=== PATIENT | male | born 1960 | race American Indian/Alaskan Native ===

== ENCOUNTER 2020-08-23 23:36 | Emergency (ER) | payer SELFPAY | END 2020-08-24 07:00 | disposition left against medical advice (07) | LOC: ED 08-24 01:20 | DX: R07.9 Chest pain, unspecified (principal); Z53.21 Procedure and treatment not carried out due to patient leaving prior to being seen by health care provider ==

== ENCOUNTER 2020-12-12 08:45 | Emergency (ER) | payer OTHER ==
[2020-12-12 10:44] LABS: Basophils % (Auto) 0.4 % (0.0-1.8); Eosinophils % (Auto) 0.2 % (0.0-4.3); Hematocrit 42.2 % (35.5-45.6); Hemoglobin 14.4 gm/dl (11.8-15.2); Lymphocytes # (Auto) 2.3 K/mm3 (1.2-5.4); Lymphocytes % (Auto) 23.1 % (13.4-35.0); Mean Corpuscular HGB Conc 34 % (32-34); Mean Corpuscular Volume 94 fl (84-94); Monocytes # (Auto) 1.1 K/mm3 (0.0-0.8); Monocytes % (Auto) 11.5 % (0.0-7.3); Platelet Count 346 K/mm3 (140-440); Red Blood Count 4.49 M/mm3 (3.65-5.03); Red Cell Distribution Width 13.2 % (13.2-15.2)
[2020-12-12 10:58] LABS: Albumin 4.8 g/dL (3.9-5); Calcium 10.9 mg/dL (8.4-10.2); Creatine Kinase MB 11.1 ng/mL (0.0-4.0)
[2020-12-12 11:09] LABS: Free T4 (Free Thyroxine) 1.27 ng/dL (0.76-1.46)
[2020-12-12] MEDS ORDERED: SODIUM CHLORIDE 0.9% 1000 ML 1,000 ML IV ONE (22:11)
--- NOTE | 2020-12-12 22:17 | Emergency Department Report ---
- General Chief complaint: Weakness Stated complaint: DIZZINESS/DEHYDRATION Time Seen by Provider: 12/12/20 22:11 Source: patient, EMS Mode of arrival: Stretcher Limitations: No Limitations - History of Present Illness Initial comments: Patient is 60 years old male with history of hypertension and posttraumatic stress disorder. [facility] Patient presented to the ER complaining of generalized weakness since this morning. 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 Patient stated that possible weakness is from not drinking enough water. Patient denied any chest pain or shortness of breath. No nausea or vomiting. Patient denied any focal weakness numbness or tingling sensation. MD Complaint: generalized weakness -: This morning Location: generalized - Related Data Allergies Allergy/AdvReac Type Severity Reaction Status Date / Time No Known Allergies Allergy Unverified 12/12/20 08:54 ED Review of Systems ROS: Stated complaint: DIZZINESS/DEHYDRATION Other details as noted in HPI Comment: All other systems reviewed and negative Constitutional: denies: chills, fever Respiratory: denies: cough, shortness of breath, SOB with exertion Cardiovascular: palpitations. denies: chest pain Gastrointestinal: denies: abdominal pain, nausea, vomiting Musculoskeletal: denies: back pain Neurological: weakness. denies: headache, numbness, paresthesias, confusion, abnormal gait ED Past Medical Hx - Past Medical History Previous Medical History?: Yes Hx Hypertension: Yes Hx Headaches / Migraines: Yes Additional medical history: Anxiety, PTSD - Surgical History Past Surgical History?: No - Social History Smoking Status: Current Every Day Smoker Substance Use Type: Alcohol ED Physical Exam - General Limitations: No Limitations General appearance: alert, in no apparent distress - Head Head exam: Present: atraumatic, normocephalic, normal inspection - ENT ENT exam: Present: mucous membranes dry - Neck Neck exam: Present: normal inspection, full ROM. Absent: tenderness, meningismus - Respiratory Respiratory exam: Present: normal lung sounds bilaterally - Cardiovascular Cardiovascular Exam: Present: regular rate, normal rhythm, normal heart sounds - GI/Abdominal GI/Abdominal exam: Present: soft, normal bowel sounds. Absent: distended, tenderness, guarding, rebound, rigid, organomegaly, mass, bruit, pulsatile mass, hernia - Extremities Exam Extremities exam: Present: normal inspection, full ROM, normal capillary refill. Absent: tenderness - Back Exam Back exam: Present: normal inspection, full ROM. Absent: CVA tenderness (R), CVA tenderness (L) - Neurological Exam Neurological exam: Present: alert, oriented X3, CN II-XII intact, normal gait, reflexes normal. Absent: motor sensory deficit - Psychiatric Psychiatric exam: Present: normal mood - Skin Skin exam: Present: warm, dry, intact, normal color - Assessment Assessment Interval: Baseline - Level of Consciousness 1a. Level of Consciousness: alert/keenly responsive - LOC Questions 1b. LOC Questions: answers both correctly - LOC Command 1c. LOC Commands: performs tasks correctly - Best Gaze 2. Best Gaze: normal - Visual 3. Visual: no visual loss - Facial Palsy 4. Facial Palsy: normal symmetrical movement - Motor Arm 5a. Motor Arm Left: no drift 5b. Motor Arm Right: no drift - Motor Leg 6a. Motor Leg Left: no drift 6b. Motor Leg Right: no drift - Limb Ataxia 7. Limb Ataxia: absent - Sensory 8. Sensory: normal - Best Language 9. Best Language: no aphasia - Dysarthria 10. Dysarthria: normal - Extinction and Inattention 11. Extinction/Inattention: no abnormality - Scoring Total Score: 0 Stroke Severity: No Stroke Symptoms ED Course Vital Signs 12/12/20 09:20 Temperature 97.8 F Pulse Rate 118 H Respiratory 20 Rate Blood Pressure 115/71 O2 Sat by Pulse 98 Oximetry ED Medical Decision Making - Lab Data Result diagrams: 12/12/20 09:51 12/12/20 09:51 - Medical Decision Making Patient is 60 years old male with history of hypertension and posttraumatic stress disorder. [facility] is [facility]. Patient presented to the ER complaining of generalized weakness since this morning. 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 Patient stated that possible weakness is from not drinking enough water. Patient denied any chest pain or shortness of breath. No nausea or vomiting. Patient denied any focal weakness numbness or tingling sensation. Labs reviewed and showed elevated CK indicating rhabdomyolysis. Patient creatinine is 1.5. Patient received 1 L of normal saline. Patient stated that he is feeling much better. Patient advised to follow-up with his primary care physician in the next 2 to 3days also advised patient to increase his p.o. intake. Patient advised to return to the ER if he develop any new symptoms. Critical care attestation.: If time is entered above; I have spent that time in minutes in the direct care of this critically ill patient, excluding procedure time. ED Disposition Clinical Impression: Generalized weakness, Dehydration, Rhabdomyolysis Disposition: DC-01 TO HOME OR SELFCARE Is pt being admited?: No Condition: Stable Instructions: Rhabdomyolysis, Dehydration, Adult, [id number] Referrals: PRIMARY CARE,MD [Primary Care Provider] - 3-5 Days
[2020-12-12 23:20] LABS: Bacteria,Urine 1+ /HPF (Negative); Bilirubin,Urine NEG (Negative); Blood,Urine NEG (Negative); Color,Urine Yellow (Yellow); Mucus,Urine 1+ /HPF
[2020-12-13 02:58] VITALS: BP 142/73
== END 2020-12-13 02:57 | disposition home or self-care (01) ==
LOC: ED 08:45
DX: M62.82 Rhabdomyolysis (principal); E86.0 Dehydration; R53.1 Weakness; I10 Essential (primary) hypertension; G43.909 Migraine, unspecified, not intractable, without status migrainosus; F41.9 Anxiety disorder, unspecified; F17.200 Nicotine dependence, unspecified, uncomplicated
CPT/HCPCS: 36415; 80053; 81001; 82550; 82553; 84439; 84443; 85025; 96360; 99284; J7030